=== PATIENT | male | born 1950 | race Caucasian/White ===

== ENCOUNTER 2016-11-06 10:14 | Inpatient (IN) | payer MEDICARE, OTHER ==
[~2016-11-06] VITALS: Ht 190.5 cm; Wt 132.0 kg
[2016-11-06] MEDS ORDERED: SODIUM CHLORIDE 0.9% 1,000ML IVBOLUS ONE (11:00)
[2016-11-06] MEDS ORDERED: SODIUM CHLORIDE FLUSH 10ML SYR IVF ONE (11:00)
[2016-11-06] MEDS ORDERED: OMEG100023 PO (11:32)
[2016-11-06] MEDS ORDERED: MULT-658 PO (11:32)
[2016-11-06] MEDS ORDERED: ACETAMINOPHEN 500 MG TABLET ONE (11:54)
[2016-11-06 11:56] LABS: HEMATOCRIT 48.7 % (39.2-51.8); HEMOGLOBIN 16.2 g/dL (13.7-18.0); WHITE BLOOD COUNT 11.7 x10^3/uL (3.4-10)
[2016-11-06] MEDS ORDERED: ACETAMINOPHEN 500 MG TABLET PO ONE (12:00)
[2016-11-06 12:11] LABS: BLOOD UREA NITROGEN 12 mg/dL (7-18)
[2016-11-06] MEDS ORDERED: IBUPROFEN 200 MG TABLET ONE (12:27)
[2016-11-06] MEDS ORDERED: ACYCLOVIR IV STA ×2 (12:48→12:57)
[2016-11-06] MEDS ORDERED: SODIUM CHLORIDE 0.9% IV STA ×2 (12:48→12:57)
[2016-11-06] MEDS ORDERED: CEFTRIAXONE PMX 2GM/50ML 50 ML IV ONE (13:00)
[2016-11-06 13:40] LABS: GLUCOSE, CSF 78 mg/dL (40-80)
[2016-11-06] MEDS ORDERED: DOCUSATE 100 MG CAPSULE PO PRN (14:30)
[2016-11-06] MEDS ORDERED: BISACODYL 10 MG SUPP PR PRN (14:30)
[2016-11-06] MEDS ORDERED: ENALAPRILAT 1.25 MG/ML, 2ML IVPush PRN (14:30)
[2016-11-06] MEDS ORDERED: ONDANSETRON ODT 4 MG PO PRN (14:30)
[2016-11-06 14:58] VITALS: BP 143/83
[2016-11-06] MEDS ORDERED: VANCOMYCIN PER PHARMACY MC PRN (15:00)
[2016-11-06] MEDS ORDERED: PHARMACOKINETIC MONITORING MC PRN (15:30)
[2016-11-06] MEDS ORDERED: PHARMACOKINETIC CONSULTATION MC ONE (15:30)
[2016-11-06] MEDS: SODIUM CHLORIDE 0.9% 1,000 ML IV SCH (16:58)
[2016-11-06 17:00] VITALS: BP 115/76
[2016-11-06] MEDS: HEPARIN 5,000 UNITS/ML, 1ML SQ SCH ×2 (17:44→22:08)
[2016-11-06] MEDS: VANCOMYCIN 2,500 MG in SODIUM CHLORIDE 0.9% 500 ML IV SCH (17:44)
[2016-11-06 19:11] VITALS: BP 151/73
[2016-11-06 20:49] LABS: DAU SCREEN DISCLAIMER
[2016-11-06] MEDS: ZOLPIDEM 5MG TABLET PO PRN (22:09)
[2016-11-07] MEDS: ACETAMINOPHEN 325 MG TABLET PO PRN ×3 (01:17→22:38)
[2016-11-07 02:00] VITALS: BP 143/77
[2016-11-07] MEDS ORDERED: IBUPROFEN 200 MG TABLET ONE (02:22)
[2016-11-07] MEDS: IBUPROFEN 200 MG TABLET PO PRN ×3 (02:26→19:41)
[2016-11-07] MEDS: CEFTRIAXONE PMX 2GM/50ML 50 ML IV SCH ×2 (02:37→13:43)
[2016-11-07 05:56] LABS: HEMATOCRIT 42.9 % (39.2-51.8); HEMOGLOBIN 14.2 g/dL (13.7-18.0); WHITE BLOOD COUNT 9.4 x10^3/uL (3.4-10)
[2016-11-07 06:10] LABS: BLOOD UREA NITROGEN 14 mg/dL (7-18)
[2016-11-07] MEDS: HEPARIN 5,000 UNITS/ML, 1ML SQ SCH ×3 (06:18→22:37)
[2016-11-07 06:19] LABS: ASPARTATE AMINO TRANSFERASE 85 U/L (15-37)
[2016-11-07] MEDS: LEVOTHYROXINE 25 MCG TABLET PO SCH (09:50)
[2016-11-07] MEDS: SODIUM CHLORIDE 0.9% 1,000 ML IV SCH ×2 (09:51→22:37)
[2016-11-07 09:55] VITALS: BP 157/77
[2016-11-07 12:45] LABS: RAPID INFLUENZA A Negative (Negative); RAPID INFLUENZA B Negative (Negative)
[2016-11-07] MEDS ORDERED: OMNIPAQUE 350 MG/ML, 100ML BOTTLE ONE (13:43)
[2016-11-07 13:53] VITALS: BP 146/71
[2016-11-07] MEDS: VANCOMYCIN 2,500 MG in SODIUM CHLORIDE 0.9% 500 ML IV SCH (16:08)
[2016-11-07] MEDS: PIPERACILLIN/TAZO/PMX 3.375GM 50 ML IV SCH ×2 (17:24→22:37)
[2016-11-07 19:07] VITALS: BP 170/89
[2016-11-08 03:10] VITALS: BP 174/83
[2016-11-08] MEDS: IBUPROFEN 200 MG TABLET PO PRN ×2 (03:18→12:53)
[2016-11-08] MEDS: ZOLPIDEM 5MG TABLET PO PRN (03:18)
[2016-11-08] MEDS: LABETALOL 5MG/ML, 20ML IVPush PRN (03:19)
[2016-11-08] MEDS: PIPERACILLIN/TAZO/PMX 3.375GM 50 ML IV SCH ×4 (06:02→22:46)
[2016-11-08] MEDS: ACETAMINOPHEN 325 MG TABLET PO PRN ×3 (06:02→22:47)
[2016-11-08] MEDS: HEPARIN 5,000 UNITS/ML, 1ML SQ SCH ×3 (06:02→22:47)
[2016-11-08] MEDS: LEVOTHYROXINE 25 MCG TABLET PO SCH (06:12)
[2016-11-08 06:56] VITALS: BP 154/83
[2016-11-08 08:47] LABS: HEMATOCRIT 39.3 % (39.2-51.8); HEMOGLOBIN 13.4 g/dL (13.7-18.0); WHITE BLOOD COUNT 9.7 x10^3/uL (3.4-10)
[2016-11-08] MEDS: SODIUM CHLORIDE 0.9% 1,000 ML IV SCH ×2 (11:16→14:15)
[2016-11-08 14:11] VITALS: BP 159/82
[2016-11-08] MEDS: ONDANSETRON 2MG/ML, 2ML IVPush PRN ×2 (14:18→21:47)
[2016-11-08 21:13] VITALS: BP 158/90
[2016-11-08] MEDS: NAPROXEN 250 MG TABLET PO SCH (22:46)
[2016-11-08] MEDS: FLUTICASONE NASAL SPRAY 16GM NAS SCH (22:47)
[2016-11-09 02:00] VITALS: BP 133/84
[2016-11-09] MEDS: SODIUM CHLORIDE 0.9% 1,000 ML IV SCH ×2 (03:49→16:46)
[2016-11-09] MEDS: ACETAMINOPHEN 325 MG TABLET PO PRN (04:52)
[2016-11-09] MEDS: PIPERACILLIN/TAZO/PMX 3.375GM 50 ML IV SCH ×4 (04:52→22:57)
[2016-11-09] MEDS: HEPARIN 5,000 UNITS/ML, 1ML SQ SCH ×3 (06:23→22:58)
[2016-11-09] MEDS: LEVOTHYROXINE 25 MCG TABLET PO SCH (06:23)
[2016-11-09 08:16] VITALS: BP 147/88
[2016-11-09] MEDS: FLUTICASONE NASAL SPRAY 16GM NAS SCH ×2 (08:25→20:48)
[2016-11-09] MEDS: NAPROXEN 250 MG TABLET PO SCH ×2 (08:25→20:48)
[2016-11-09] MEDS ORDERED: LISINOPRIL 10 MG TABLET PO SCH (09:00)
[2016-11-09 09:39] LABS: HEMATOCRIT 39.2 % (39.2-51.8); HEMOGLOBIN 13.4 g/dL (13.7-18.0); WHITE BLOOD COUNT 8.9 x10^3/uL (3.4-10)
[2016-11-09 09:51] LABS: BLOOD UREA NITROGEN 14 mg/dL (7-18)
[2016-11-09] MEDS ORDERED: GUAIFENESIN 100 MG/5 ML, 10ML UDC PO PRN (13:00)
[2016-11-09] MEDS ORDERED: LISINOPRIL 10 MG TABLET PO ONE (15:00)
[2016-11-09] MEDS ORDERED: POTASSIUM CHLORIDE 20 MEQ TAB.ER.PRT PO ONE (15:00)
[2016-11-09 15:25] VITALS: BP 122/86
[2016-11-09] MEDS: LACTOBACILLUS CHEW TABLET PO SCH ×2 (16:45→20:48)
[2016-11-09 20:52] VITALS: BP 158/97
[2016-11-10 02:26] VITALS: BP 161/97
[2016-11-10] MEDS: SODIUM CHLORIDE 0.9% 1,000 ML IV SCH (06:08)
[2016-11-10] MEDS: PIPERACILLIN/TAZO/PMX 3.375GM 50 ML IV SCH ×2 (06:08→12:37)
[2016-11-10] MEDS: LEVOTHYROXINE 25 MCG TABLET PO SCH (06:08)
[2016-11-10] MEDS: HEPARIN 5,000 UNITS/ML, 1ML SQ SCH ×3 (06:08→22:27)
[2016-11-10 07:06] VITALS: BP 157/93
[2016-11-10] MEDS ORDERED: POTASSIUM CHLORIDE 20 MEQ TAB.ER.PRT PO SCH (08:00)
[2016-11-10] MEDS: FLUTICASONE NASAL SPRAY 16GM NAS SCH ×2 (08:47→20:32)
[2016-11-10] MEDS: LISINOPRIL 20 MG TABLET PO SCH (08:47)
[2016-11-10] MEDS: LACTOBACILLUS CHEW TABLET PO SCH ×3 (08:47→20:31)
[2016-11-10] MEDS: NAPROXEN 250 MG TABLET PO SCH ×2 (08:49→20:31)
[2016-11-10] MEDS ORDERED: OXYcodone IR 5MG TABLET PO PRN (11:00)
[2016-11-10 11:58] LABS: HEMATOCRIT 39.6 % (39.2-51.8); HEMOGLOBIN 13.4 g/dL (13.7-18.0); WHITE BLOOD COUNT 9.2 x10^3/uL (3.4-10)
[2016-11-10 12:11] LABS: ASPARTATE AMINO TRANSFERASE 126 U/L (15-37); BLOOD UREA NITROGEN 11 mg/dL (7-18)
[2016-11-10 12:36] VITALS: BP 171/117
[2016-11-10] MEDS: LABETALOL 5MG/ML, 20ML IVPush PRN (12:40)
[2016-11-10 13:25] VITALS: BP 150/84
[2016-11-10] MEDS: AZITHROMYCIN 500 MG in SODIUM CHLORIDE 0.9% 250 ML IV SCH (18:14)
[2016-11-10] MEDS ORDERED: ALKA SELTZER PO PRN (20:00)
[2016-11-10 20:29] VITALS: BP 169/92
[2016-11-10] MEDS: POTASSIUM CHLORIDE 20 MEQ TAB.ER.PRT PO SCH (20:31)
[2016-11-11 01:50] VITALS: BP 154/91
[2016-11-11 05:36] LABS: HEMATOCRIT 38.7 % (39.2-51.8); HEMOGLOBIN 13.1 g/dL (13.7-18.0); WHITE BLOOD COUNT 10.1 x10^3/uL (3.4-10)
[2016-11-11 05:38] LABS: ASPARTATE AMINO TRANSFERASE 128 U/L (15-37); BLOOD UREA NITROGEN 11 mg/dL (7-18)
[2016-11-11 05:43] LABS: TOTAL IRON BINDING CAPACITY 143 mcg/dL (250-450)
[2016-11-11] MEDS: LEVOTHYROXINE 25 MCG TABLET PO SCH (06:00)
[2016-11-11] MEDS: HEPARIN 5,000 UNITS/ML, 1ML SQ SCH ×2 (06:19→14:37)
[2016-11-11 08:18] VITALS: BP 186/113
[2016-11-11] MEDS: NAPROXEN 250 MG TABLET PO SCH (08:45)
[2016-11-11] MEDS: LISINOPRIL 20 MG TABLET PO SCH (08:46)
[2016-11-11] MEDS: LACTOBACILLUS CHEW TABLET PO SCH ×2 (08:46→17:16)
[2016-11-11] MEDS: POTASSIUM CHLORIDE 20 MEQ TAB.ER.PRT PO SCH (08:46)
[2016-11-11] MEDS: LABETALOL 5MG/ML, 20ML IVPush PRN (08:47)
[2016-11-11] MEDS: FLUTICASONE NASAL SPRAY 16GM NAS SCH (08:47)
[2016-11-11 08:55] VITALS: BP 159/98
[2016-11-11 12:20] VITALS: BP 176/103
[2016-11-11 14:39] VITALS: BP 152/89
[2016-11-11] MEDS: AZITHROMYCIN 500 MG in SODIUM CHLORIDE 0.9% 250 ML IV SCH (17:16)
[2016-11-11] MEDS ORDERED: LISI-170 PO (18:50)
[2016-11-11] MEDS ORDERED: LEVO25TA2 PO (18:50)
[2016-11-11] MEDS ORDERED: AMOX1TAB64 PO (18:50)
[2016-11-11] MEDS ORDERED: ACID1TAB7 PO (18:50)
[2016-11-11 19:30] VITALS: BP 170/96
[2016-11-11] MEDS ORDERED: LISINOPRIL 20 MG TABLET PO SCH (21:00)
[2016-11-12] MEDS ORDERED: POTASSIUM CHLORIDE 20 MEQ TAB.ER.PRT PO SCH (08:00)
== END 2016-11-11 20:15 | disposition home or self-care (01) | DRG 871 ==
LOC: EDSEX 10:14 → ED 12:23 → EDIP 12:53 → 4NOR 14:43
PROVIDERS: ADMIT Internal Medicine; ATTEND Internal Medicine
PROC: 009U3ZX Drainage of Spinal Canal, Percutaneous Approach, Diagnostic (ICD-10-PCS; principal; 2016-11-06)
DX: A41.9 Sepsis, unspecified organism (principal); J18.1 Lobar pneumonia, unspecified organism; G93.41 Metabolic encephalopathy; N17.9 Acute kidney failure, unspecified; E87.1 Hypo-osmolality and hyponatremia; J98.11 Atelectasis; E44.1 Mild protein-calorie malnutrition; I10 Essential (primary) hypertension; E66.9 Obesity, unspecified; E03.9 Hypothyroidism, unspecified; E87.6 Hypokalemia; J01.90 Acute sinusitis, unspecified; J01.30 Acute sphenoidal sinusitis, unspecified; N28.1 Cyst of kidney, acquired; Z87.891 Personal history of nicotine dependence; Z68.36 Body mass index [BMI] 36.0-36.9, adult; Z83.3 Family history of diabetes mellitus; Z72.89 Other problems related to lifestyle
CPT/HCPCS: 36415; 70450; 71020; 74177; 76700; 80048; 80053; 80074; 80307; 81001; 82040; 82140; 82550; 82945; 82962; 83036; 83540; 83550; 83605; 83735; 84100; 84157; 84439; 84443; 85025; 87040; 87046; 87070; 87205; 87252; 87324; 87400; 87529; 87899; 89051; 93005; 96361; 96365; 96366; 96368; J0133; J0456; J0696; J1644; J2405; J2543; J3370; Q9967; J7030; J7040; J7050

== ENCOUNTER → 2016-12-10 | Outpatient (CLI) | payer MEDICARE ==
[~2016-12-10] MED LIST: ACID1TAB7 PO; AMOX1TAB64 PO; LEVO25TA2 PO; LISI-170 PO; MULT-658 PO; OMEG100023 PO
== END | disposition home or self-care (01) ==
LOC: RAD 11:25
PROVIDERS: ATTEND Family Medicine
DX: J18.9 Pneumonia, unspecified organism (principal)
CPT/HCPCS: 71020